=== PATIENT | male | born 1990 | race African-American/Black ===

== ENCOUNTER 2017-04-09 19:26 | Emergency (ER) | payer SELFPAY ==
[2017-04-09 19:34] VITALS: BP 140/65; PULSE 68; TEMP 98; BMI 30.4
--- NOTE | 2017-04-09 21:21 | PDOC ---
History of Present Illness - General Chief Complaint: Injury Stated Complaint: PAIN Time Seen by Provider: 04/09/17 21:13 History Source: Patient Exam Limitations: No Limitations - History of Present Illness Initial Comments: 04/09/17 21:18 26-year-old male presents to the ED with complaints of left fifth toe digit pain after he ran into a bed frame patient states injury to affected area but states pain with movement and weightbearing patient denies laceration did not take anything for the pain. Occurred: reports: just prior to arrival Severity: reports: mild Pain Location: reports: lower extremity Method of Injury: Yes: direct blow Modifying Factors: improves with: None Associated Symptoms (Fall): denies symptoms Past History - Past Medical History Allergies/Adverse Reactions: Allergies Allergy/AdvReac Type Severity Reaction Status Date / Time No Known Allergies Allergy Verified 04/09/17 19:34 Thyroid Disease: No - Psycho/Social/Smoking Cessation Hx Anxiety: No Suicidal Ideation: No Smoking History: Never smoked Have you smoked in the past 12 months: No Information on smoking cessation initiated: No Hx Alcohol Use: No Drug/Substance Use Hx: No Substance Use Type: None Patient Lives Alone: No Lives with/in: parents Review of Systems - Review of Systems Able to Perform ROS?: Yes Constitutional: No: Symptoms Reported Musculoskeletal: Yes: Joint Pain (right fifth toe) Integumentary: Yes: Bruising (right fifth toe) Neurological: No: Symptoms reported Hematologic/Lymphatic: No: Symptoms Reported *Physical Exam - Vital Signs Last Vital Signs Temp Pulse Resp BP Pulse Ox 98.0 F 68 18 140/65 100 04/09/17 19:30 04/09/17 19:30 04/09/17 19:30 04/09/17 19:30 04/09/17 19:30 - Physical Exam General Appearance: Yes: Nourished, Appropriately Dressed. No: Apparent Distress Extremity: positive: Other (right fifth digit with ecchymosis and edema to the distal aspect. No deformity no crepitus but has difficulty flexing the toe) Integumentary: positive: Swelling, Bruising Neurologic: positive: Motor Strength 5/5 (ambulatory) ED Treatment Course - RADIOLOGY Radiology Studies Ordered: Category Date Time Status TOE(S) RIGHT [RAD] Stat Radiology 04/09/17 21:17 Ordered Medical Decision Making - Medical Decision Making 04/09/17 21:20 Patient with right fifth toe injury. Patient ordered for x-ray due to limited range of motion and nature of injury 04/09/17 21:57 Xray - for fx. Discharge. *DC/Admit/Observation/Transfer Diagnosis at time of Disposition: Contusion of toe Qualifiers: Encounter type: initial encounter Toe: lesser toe Damage to nail status: without damage Laterality: right Qualified Code(s): S90.121A - Contusion of right lesser toe(s) without damage to nail, initial encounter - Discharge Dispostion Disposition: HOME Condition at time of disposition: Good - Patient Instructions Printed Discharge Instructions: DI for Turf Toe Additional Instructions: I have enclosed information in regards to your injury. I recommend motrin 600mg every 8 hrs and ice to the area as much as you can tolerate x 3 days
== END 2017-04-09 22:09 | disposition home or self-care (01) ==
LOC: JERFT 19:26 → JER 19:26 → JERFT 22:09
DX: S90.122A Contusion of left lesser toe(s) without damage to nail, initial encounter (principal); W22.03XA Walked into furniture, initial encounter; Y93.89 Activity, other specified; Y92.032 Bedroom in apartment as the place of occurrence of the external cause
CPT/HCPCS: 73660-TC; 99281-25

== ENCOUNTER 2021-04-23 00:20 | Emergency (ER) | payer SELFPAY ==
[2021-04-23 00:41] VITALS: BP 146/100; PULSE 78; TEMP 98.9; BMI 30.4
[2021-04-23] MEDS ORDERED: BUPIVACAINE HCL 50 ML ONE (00:48)
[2021-04-23] MEDS ORDERED: LIDOCAINE HCL 2% (20ML MULTI-DOSE VIAL) ONE (00:49)
[2021-04-23] MEDS ORDERED: IBUPROFEN 400 MG TABLET (FP) PO ONE ×2 (00:54→00:56)
[2021-04-23] MEDS ORDERED: ACETAMINOPHEN 325 MG TABLET (FP) PO ONE (00:54)
[2021-04-23] MEDS ORDERED: ACETAMINOPHEN 325 MG TABLET (FP) ONE (00:55)
[2021-04-23] MEDS ORDERED: metroNIDAZOLE 250 MG TABLET PO ONE (01:21)
[2021-04-23] MEDS ORDERED: metroNIDAZOLE 250 MG TABLET ONE (01:22)
== END 2021-04-23 02:38 | disposition home or self-care (01) ==
LOC: JER 00:20
DX: K08.89 Other specified disorders of teeth and supporting structures (principal)
CPT/HCPCS: 99284-25

== ENCOUNTER 2023-11-27 03:01 | Emergency (ER) | payer SELFPAY ==
[2023-11-27 03:11] VITALS: BP 149/78; PULSE 67; RESP 20; TEMP 98.4; BMI 28.7
[2023-11-27] MEDS ORDERED: KETOROLAC TROMETHAMINE 30 MG/1 ML VIAL IM ONE (03:28)
[2023-11-27] MEDS ORDERED: AMOX TR/POT CLAV 875MG/125MG TABLETS (FP) PO ONE (03:29)
[2023-11-27] MEDS ORDERED: KETOROLAC TROMETHAMINE 30 MG/1 ML VIAL ONE (03:38)
[2023-11-27] MEDS ORDERED: AMOX TR/POT CLAV 875MG/125MG TABLETS (FP) ONE (03:38)
== END 2023-11-27 04:13 | disposition home or self-care (01) ==
LOC: JER 03:01
PROC: 3E0233Z Introduction of Anti-inflammatory into Muscle, Percutaneous Approach (ICD-10-PCS; principal; 2023-11-27)
DX: K08.89 Other specified disorders of teeth and supporting structures (principal)
CPT/HCPCS: 99284-25